=== PATIENT | male | born 1965 | race Caucasian/White ===

== ENCOUNTER 2019-01-12 19:06 | Inpatient (IN) | payer MEDICAID ==
[~2019-01-12 19:06] MED LIST: BACTRIM DS TABL1 TAB PO; FOLIC ACID1 MG PO; HYDROCHLOROTHIA25 MG PO; LASIX40 MG PO; METHOTREXATE2.5 MG PO; METOPROLOL TAR100 M1 PO; PERCOCET 10/3251 TA1 PO; PREDNISONE5 MG PO; VITAMIN A10000 UNIT PO
[2019-01-12 20:01] LABS: BASOPHILS 0.3 % (0-2); EOSINOPHILS 0.6 % (0-7); HEMATOCRIT 31.9 % (42.0-54.0); LYMPHOCYTES 13.3 % (15-50); MCH 30.7 pg (26.0-34.0); MCHC 34.5 g/dL (31.0-37.0); MCV 89.1 fL (80.0-100.0); MEAN PLATELET VOLUME 10.3 fL (7.4-10.4); MONOCYTES 5.4 % (2-11); NEUTROPHILS 79.4 % (40-80); PLATELET COUNT 188 10x3/uL (130-400); RBC 3.58 10x6/uL (4.20-6.10); RDW 14.8 % (11.5-14.5); WBC 12.7 10x3/uL (4.8-10.8)
[2019-01-12 20:23] LABS: ALBUMIN 2.8 g/dL (3.4-5.0); ANION GAP 13.1 mmol/L (8-16); BILIRUBIN - TOTAL 0.54 mg/dL (0.2-1.3); CALCIUM 8.4 mg/dL (8.5-10.1); CARBON DIOXIDE 24.7 mmol/L (21.0-32.0); CREATININE - SERUM 1.4 mg/dL (0.6-1.3); PROTEIN - SERUM 7.4 g/dL (6.4-8.2)
[2019-01-12 20:24] LABS: POTASSIUM - SERUM 2.8 mmol/L (3.5-5.1)
[2019-01-12 22:02] VITALS: BP 168/78
[2019-01-12 22:36] VITALS: BP 159/82
--- NOTE | 2019-01-12 23:30 | NUR ---
RECEIVED PT TO FLOOR FROM ER VIA WHEELCHAIR. IV BOLUS INFUSING. IV ANTIBIOTIC INFUSION COMPLETE UPON ARRIVAL. REVIEWED HOME MEDS AND HISTORY. LEFT LOWER EXTREMITY +3 PITTING EDEMA. WOUND ON LEFT CALF SCABBED OVER WITH NO APPARENT DRAINAGE. REDNESS FROM LOWER LEG TO THIGH. PLACED SCD ON RIGHT LEG AND GAVE TEACHING ON. TELEMETRY ON. ASSESSMENT COMPLETE PER FLOW-SHEET.
[2019-01-13] VITALS (7 sets, daily range): BP systolic 101–137; BP diastolic 44–82; BMI 37.4
[2019-01-13] MEDS ORDERED: CHLORTHALIDONE25 MG PO (00:07)
[2019-01-13] MEDS ORDERED: LISINOPRIL40 MG PO (00:07)
[2019-01-13] MEDS ORDERED: VOLTAREN75 MG PO (00:09)
[2019-01-13] MEDS ORDERED: AZULFIDINE500 MG PO (00:10)
[2019-01-13] MEDS ORDERED: HYDROXYCHLOR TAB 200 PO (00:12)
[2019-01-13] MEDS ORDERED: CARDURA8 MG PO (00:17)
[2019-01-13] MEDS ORDERED: ACETAMINOPHEN500 M1 PO (00:20)
[2019-01-13 05:08] LABS: BASOPHILS 0.2 % (0-2); EOSINOPHILS 0.5 % (0-7); HEMATOCRIT 30.6 % (42.0-54.0); HEMOGLOBIN 10.4 g/dL (13.5-17.5); LYMPHOCYTES 11.6 % (15-50); MCH 30.1 pg (26.0-34.0); MCV 88.4 fL (80.0-100.0); MEAN PLATELET VOLUME 10.4 fL (7.4-10.4); MONOCYTES 11.9 % (2-11); NEUTROPHILS 74.8 % (40-80); PLATELET COUNT 185 10x3/uL (130-400); RBC 3.46 10x6/uL (4.20-6.10); RDW 14.7 % (11.5-14.5); WBC 13.1 10x3/uL (4.8-10.8)
[2019-01-13 05:16] LABS: ANION GAP 11.5 mmol/L (8-16); CALCIUM 8.3 mg/dL (8.5-10.1); CARBON DIOXIDE 27.4 mmol/L (21.0-32.0); CREATININE - SERUM 1.2 mg/dL (0.6-1.3); MAGNESIUM - SERUM 1.7 mg/dL (1.8-2.4)
[2019-01-13 05:21] LABS: POTASSIUM - SERUM 2.9 mmol/L (3.5-5.1)
--- NOTE | 2019-01-13 08:00 | NUR ---
ASSESSMENT PER FLOW SHEET.PT IS WITHOUT DISTRESS.CALL LIGHT IN REACH
[2019-01-14] VITALS: BP 111/68
[2019-01-14 04:00] VITALS: BP 142/78
--- NOTE | 2019-01-14 05:00 | NUR ---
PT C/O LEG PAIN 10/10. GAVE MORPHINE 4 MG IV PUSH. NO OTHER NEEDS. WILL REASSESS AND CONTINUE TO MONITOR.
[2019-01-14 06:38] LABS: BASOPHILS 0.2 % (0-2); EOSINOPHILS 0.6 % (0-7); HEMATOCRIT 29.4 % (42.0-54.0); HEMOGLOBIN 9.9 g/dL (13.5-17.5); IMMATURE GRANULOCYTES 1.2 % (0-5); LYMPHOCYTES 11.7 % (15-50); MCH 29.9 pg (26.0-34.0); MCHC 33.7 g/dL (31.0-37.0); MCV 88.8 fL (80.0-100.0); MEAN PLATELET VOLUME 10.3 fL (7.4-10.4); MONOCYTES 10.9 % (2-11); NEUTROPHILS 75.4 % (40-80); PLATELET COUNT 187 10x3/uL (130-400); RBC 3.31 10x6/uL (4.20-6.10); RDW 14.8 % (11.5-14.5); WBC 10.8 10x3/uL (4.8-10.8)
[2019-01-14 06:49] LABS: ALBUMIN 2.3 g/dL (3.4-5.0); ALKALINE PHOSPHATASE 62 U/L (46-116); ALT (SGPT) 31 U/L (10-68); BILIRUBIN - TOTAL 0.47 mg/dL (0.2-1.3); CALCIUM 8.5 mg/dL (8.5-10.1); CARBON DIOXIDE 23.3 mmol/L (21.0-32.0); CHLORIDE - SERUM 106 mmol/L (98-107); CREATININE - SERUM 0.9 mg/dL (0.6-1.3); GLUCOSE 113 mg/dL (74-106); MAGNESIUM - SERUM 1.7 mg/dL (1.8-2.4); SODIUM 139 mmol/L (136-145); eGFR NON AFRICAN AMERICAN > 90 mL/min (90-120)
[2019-01-14 06:51] LABS: CALC OSMOLALITY 276 mosm/kg (275-300); POTASSIUM - SERUM 4.1 mmol/L (3.5-5.1); UREA NITROGEN 8 mg/dL (7-18)
[2019-01-14 09:43] VITALS: BP 134/62
[2019-01-14 14:17] VITALS: BP 146/75
[2019-01-14 17:44] VITALS: BP 134/78
--- NOTE | 2019-01-14 18:50 | NUR ---
PATIENT IN BED WITH IV INTACT. NOC OMPLAINTS OR SIGNS OF DISTRESS. RECIEVED PAIN MED AT THIS TIME. FAMILY AT BEDSIDE. CALL LIGHT WITHIN REACH.
[2019-01-14 20:00] VITALS: BP 132/85
[2019-01-15] VITALS: BP 127/76
--- NOTE | 2019-01-15 00:15 | NUR ---
PT C/O ITCHING. RED SPLOTCHY RASH ON BILAT THIGHS, ABDOMEN UP TO CHEST AND AROUND TO BACK. CALLED PHYSICIAN. ORDER FOR BENADRYL AND SOLUMEDROL. BENADRYL GIVEN, WAITING FOR CYLINDER MACHINE OPERATOR PULP DRIER TO PULL SOLUMEDROL. PT TOOK SHOWER AND BED WAS CHANGED. APPLIED NEW DRESSING WITH BETADINE WET TO DRY PER DRESSING CHANGE INSTRUCTIONS. NO OTHER NEEDS. WILL CONTINUE TO MONITOR.
[2019-01-15 04:00] VITALS: BP 120/71
[2019-01-15 06:39] LABS: BASOPHILS 0.2 % (0-2); EOSINOPHILS 0.8 % (0-7); HEMATOCRIT 30.8 % (42.0-54.0); HEMOGLOBIN 10.5 g/dL (13.5-17.5); IMMATURE GRANULOCYTES 1.3 % (0-5); LYMPHOCYTES 7.6 % (15-50); MCH 30.3 pg (26.0-34.0); MCHC 34.1 g/dL (31.0-37.0); MEAN PLATELET VOLUME 10.3 fL (7.4-10.4); NEUTROPHILS 84.1 % (40-80); PLATELET COUNT 224 10x3/uL (130-400); RBC 3.46 10x6/uL (4.20-6.10); RDW 14.8 % (11.5-14.5); WBC 10.6 10x3/uL (4.8-10.8)
[2019-01-15 07:25] LABS: ALBUMIN 2.4 g/dL (3.4-5.0); ALKALINE PHOSPHATASE 66 U/L (46-116); ALT (SGPT) 36 U/L (10-68); BILIRUBIN - TOTAL 0.29 mg/dL (0.2-1.3); CALC OSMOLALITY 273 mosm/kg (275-300); CALCIUM 8.7 mg/dL (8.5-10.1); CARBON DIOXIDE 22.9 mmol/L (21.0-32.0); CHLORIDE - SERUM 104 mmol/L (98-107); GLUCOSE 142 mg/dL (74-106); MAGNESIUM - SERUM 1.7 mg/dL (1.8-2.4); POTASSIUM - SERUM 4.4 mmol/L (3.5-5.1); PROTEIN - SERUM 7.5 g/dL (6.4-8.2); SODIUM 137 mmol/L (136-145); UREA NITROGEN 8 mg/dL (7-18); eGFR NON AFRICAN AMERICAN 84 mL/min (90-120)
--- NOTE | 2019-01-15 08:00 | NUR ---
PT RESTING EYES CLOSED NO SIGNS OF DISTRESS NOTED, CL IN REACH WILL CONTINUE TO MONITOR
[2019-01-15 10:13] VITALS: BP 140/84
[2019-01-15 13:54] VITALS: BP 146/77
[2019-01-15 17:49] VITALS: BP 125/83
--- NOTE | 2019-01-15 18:02 | NUR ---
I have reviewed this patient and I concur with the Shift Assessment completed by the Licensed Practical Nurse today this shift.
--- NOTE | 2019-01-15 20:00 | NUR ---
LYING IN BED. C/O PAIN IN LLE AND ITCHING. LLE IS RED WITH DRSG NOTED THAT IS C/D/I. RED RAISED RASH NOTED TO CHEST, ABD AND BILAT THIGHS. RATES PAIN IN LLE 10. RESP EVEN AND NONLABORED. BBS CTA. NS WITH 40 MEQ KCL @ 125 ML/HR INFUSING IN LT AC WITHOUT DIFF. SALINE LOCK NOTED TO RT AC. REFUSES TO WEAR SCD. ABD IS FIRM AND DISTENDED WITH BS ACTIVE X4 QUADS. AMBULATORY. S.O. AT BEDSIDE. ALERT AND ORIENTED X4. CL IN REACH.
--- NOTE | 2019-01-15 20:35 | NUR ---
MEDICATED WITH NORCO AND BENADRYL ORDERED FOR C/O PAIN IN LLE AND ITCHING FROM RASH. CL IN REACH.
[2019-01-15 21:25] VITALS: BP 157/77
[2019-01-16 01:19] VITALS: BP 155/90
--- NOTE | 2019-01-16 02:04 | NUR ---
HAS RESTED WELL SO FAR THIS SHIFT. NO DISTRESS. LYING IN BED WITH EYES CLOSED. RESP EVEN AND NONLABORED. SR ELEVATED X2. CL IN REACH.
[2019-01-16 06:52] LABS: BASOPHILS 0.1 % (0-2); EOSINOPHILS 0 % (0-7); HEMATOCRIT 28.8 % (42.0-54.0); HEMOGLOBIN 9.8 g/dL (13.5-17.5); IMMATURE GRANULOCYTES 1.6 % (0-5); LYMPHOCYTES 6.8 % (15-50); MCH 30.5 pg (26.0-34.0); MCV 89.7 fL (80.0-100.0); MEAN PLATELET VOLUME 10.3 fL (7.4-10.4); MONOCYTES 7.5 % (2-11); PLATELET COUNT 265 10x3/uL (130-400); RBC 3.21 10x6/uL (4.20-6.10); RDW 14.6 % (11.5-14.5)
[2019-01-16 07:29] LABS: WBC 17.1 10x3/uL (4.8-10.8)
[2019-01-16 07:31] LABS: ALBUMIN 2.2 g/dL (3.4-5.0); ALKALINE PHOSPHATASE 67 U/L (46-116); ALT (SGPT) 30 U/L (10-68); BILIRUBIN - TOTAL 0.12 mg/dL (0.2-1.3); CALC OSMOLALITY 284 mosm/kg (275-300); CALCIUM 8.4 mg/dL (8.5-10.1); CARBON DIOXIDE 23.6 mmol/L (21.0-32.0); CHLORIDE - SERUM 107 mmol/L (98-107); CREATININE - SERUM 0.9 mg/dL (0.6-1.3); POTASSIUM - SERUM 3.9 mmol/L (3.5-5.1); PROTEIN - SERUM 7.1 g/dL (6.4-8.2); SODIUM 140 mmol/L (136-145); UREA NITROGEN 10 mg/dL (7-18); eGFR NON AFRICAN AMERICAN > 90 mL/min (90-120)
[2019-01-16 07:32] LABS: GLUCOSE 232 mg/dL (74-106)
[2019-01-16 08:55] VITALS: BP 121/66
--- NOTE | 2019-01-16 09:30 | NUR ---
PT ON CL, IV IN LEFT AC IS LEAKING, TUIRNED OFF IV AND ADVISED PT THAT I WILL NEED TO RESITE IV. O OTHER NEEDS AT THIS TIME CONTINUE WITH PLAN O FCARE
--- NOTE | 2019-01-16 11:50 | NUR ---
Dr. Bonilla is treating. Dressing change orders are documented.
[2019-01-16 12:34] VITALS: BP 155/97
--- NOTE | 2019-01-16 17:07 | NUR ---
I AGREE WITH THE PETROLEUM TERMINAL PLANT OPERATOR ASSESSMENT.
[2019-01-16 17:27] VITALS: BP 127/82
[2019-01-16 20:00] VITALS: BP 130/76
--- NOTE | 2019-01-16 23:00 | NUR ---
RECEIVED CARE FROM PREVIOUS NURSE. NO DISTRESS NOTED. CALL LIGHT AT SIDE.
--- NOTE | 2019-01-17 02:58 | NUR ---
I have reviewed this patient and I concur with the Shift Assessment completed by the Licensed Practical Nurse today this shift.
[2019-01-17 05:43] LABS: HEMATOCRIT 30.4 % (42.0-54.0); MCH 30.2 pg (26.0-34.0); MCHC 32.9 g/dL (31.0-37.0); MEAN PLATELET VOLUME 9.8 fL (7.4-10.4); PLATELET COUNT 262 10x3/uL (130-400); RBC 3.31 10x6/uL (4.20-6.10)
[2019-01-17 05:59] LABS: ALBUMIN 2.1 g/dL (3.4-5.0); ALKALINE PHOSPHATASE 59 U/L (46-116); ALT (SGPT) 29 U/L (10-68); BILIRUBIN - TOTAL 0.11 mg/dL (0.2-1.3); CALC OSMOLALITY 280 mosm/kg (275-300); CALCIUM 8.2 mg/dL (8.5-10.1); CARBON DIOXIDE 24.4 mmol/L (21.0-32.0); CHLORIDE - SERUM 109 mmol/L (98-107); CREATININE - SERUM 0.8 mg/dL (0.6-1.3); MAGNESIUM - SERUM 1.8 mg/dL (1.8-2.4); PROTEIN - SERUM 6.4 g/dL (6.4-8.2); SODIUM 142 mmol/L (136-145); UREA NITROGEN 8 mg/dL (7-18); eGFR NON AFRICAN AMERICAN > 90 mL/min (90-120)
[2019-01-17 06:01] LABS: GLUCOSE 106 mg/dL (74-106); MCV 91.8 fL (80.0-100.0); WBC 12.5 10x3/uL (4.8-10.8)
[2019-01-17 06:26] VITALS: BP 115/71
[2019-01-17 07:37] LABS: LYMPHOCYTES 18 % (15-50); MONOCYTES 17 % (2-11); NEUTROPHILS 58 % (40-80); PLATELET ESTIMATE NORMAL
[2019-01-17 07:41] LABS: ANISOCYTOSIS OCC; POLYCHROMASIA OCC
[2019-01-17 09:30] VITALS: BP 139/85
[2019-01-17 12:08] VITALS: BMI 37.3
[2019-01-17 12:49] VITALS: BP 134/93
--- NOTE | 2019-01-17 14:37 | NUR ---
4506 RESTING QUIETLY AWAKENS WITH VOICE DENIES PAIN AT THIS TIME NO DISTRESS NOTED ASSESSMENT COMPLETE
[2019-01-17 17:44] VITALS: BP 204/91
--- NOTE | 2019-01-17 20:00 | NUR ---
ASSESSMENT PER FLOWSHEET. DRSG TO LEFT LOWER LEG C/D/I. +4 PITTING EDEMA NOTED. IV PATENT RT FOREARM OF NS W/40MEQ KCL AT 125CC'S/HR. SITE CLEAR. PT IN CONTACT ISOLATION. REFUSES SCD'S.
[2019-01-17 20:40] VITALS: BP 154/87
--- NOTE | 2019-01-17 21:00 | NUR ---
MEDS GIVEN PER SEP. EQCF=613. 4 UNITS REGULAR INSULIN GIVEN SUBC PER S/S RT ARM.IV PATENT RT ARM OF NS W/40MEQ KCL INFUSING AT 125CC'S/HR.
--- NOTE | 2019-01-18 00:38 | NUR ---
C/O PAIN TO LEFT LOWER LEG. RATES PAIN LEVEL #7-8 NORCO 10 TAB ONE PO GIVEN FOR PAIN CONTROL.
[2019-01-18 00:51] VITALS: BP 155/97
--- NOTE | 2019-01-18 02:00 | NUR ---
EYES CLOSED RESPIRATIONS WITH EASE AND UNLABORED.
--- NOTE | 2019-01-18 04:20 | NUR ---
RESTING QUIETLY SR UP X2 CALL LIGHT WITHIN REACH DENIES NEEDS.
[2019-01-18 04:48] VITALS: BP 174/94
[2019-01-18 06:24] LABS: BASOPHILS 0.3 % (0-2); EOSINOPHILS 0.2 % (0-7); HEMATOCRIT 29.7 % (42.0-54.0); IMMATURE GRANULOCYTES 8.8 % (0-5); LYMPHOCYTES 16.8 % (15-50); MCH 30.8 pg (26.0-34.0); MCHC 33.7 g/dL (31.0-37.0); MCV 91.4 fL (80.0-100.0); MEAN PLATELET VOLUME 9.9 fL (7.4-10.4); MONOCYTES 9.7 % (2-11); NEUTROPHILS 64.2 % (40-80); PLATELET COUNT 309 10x3/uL (130-400); RBC 3.25 10x6/uL (4.20-6.10); RDW 14.9 % (11.5-14.5); WBC 15.4 10x3/uL (4.8-10.8)
[2019-01-18 07:18] LABS: ALBUMIN 2.1 g/dL (3.4-5.0); ALKALINE PHOSPHATASE 58 U/L (46-116); ALT (SGPT) 35 U/L (10-68); BILIRUBIN - TOTAL 0.14 mg/dL (0.2-1.3); CALC OSMOLALITY 279 mosm/kg (275-300); CALCIUM 8.2 mg/dL (8.5-10.1); CARBON DIOXIDE 23.9 mmol/L (21.0-32.0); CHLORIDE - SERUM 107 mmol/L (98-107); CREATININE - SERUM 0.9 mg/dL (0.6-1.3); GLUCOSE 105 mg/dL (74-106); POTASSIUM - SERUM 4.5 mmol/L (3.5-5.1); PROTEIN - SERUM 6.5 g/dL (6.4-8.2); SODIUM 140 mmol/L (136-145); eGFR NON AFRICAN AMERICAN > 90 mL/min (90-120)
[2019-01-18 07:26] LABS: UREA NITROGEN 14 mg/dL (7-18)
--- NOTE | 2019-01-18 08:00 | NUR ---
ASSESSMENT PER FLOW SHEET. PT IS WITHOUT DISTRESS.ISOLATION MAINTAINED.CALL LIGHT IN REACH
[2019-01-18 08:50] VITALS: BP 143/94
[2019-01-18 12:24] VITALS: BP 140/86
--- NOTE | 2019-01-18 12:30 | NUR ---
PT REMAINS WITHOUT DISTRESS.DENIES NEEDS
--- NOTE | 2019-01-18 14:44 | NUR ---
NAPPING,WITHOUT DISTRESS.
[2019-01-18] MEDS ORDERED: PREDNISONE10 MG PO (15:27)
[2019-01-18] MEDS ORDERED: LEVAQUIN750 MG PO (15:28)
[2019-01-18] MEDS ORDERED: CLEOCIN HCL300 MG PO (15:29)
[2019-01-18 18:08] LABS: AEROBE ID Final report (())
--- NOTE | 2019-01-18 18:08 | NUR ---
iv dcd with cath tip intact.discharge instructions,states understanding
[2019-01-18 18:20] VITALS: BP 137/87
--- NOTE | 2019-01-18 18:25 | NUR ---
left [facility] via wheelchair for transport home
== END 2019-01-18 18:25 | disposition home or self-care (01) | DRG 603 ==
LOC: D.ER 19:06 → D.MS 21:22
PROVIDERS: Family Medicine; Podiatrist Foot & Ankle Surgery; ADMIT Family Medicine; ATTEND Family Medicine
DX: L03.116 Cellulitis of left lower limb (principal); E87.6 Hypokalemia; I10 Essential (primary) hypertension; M06.9 Rheumatoid arthritis, unspecified; L27.0 Generalized skin eruption due to drugs and medicaments taken internally

== ENCOUNTER → 2019-01-30 18:56 | Outpatient (CLI) | payer MEDICAID ==
[2019-01-17 12:08] VITALS: BMI 37.3
[~2019-01-30 18:56] MED LIST changes: +ACETAMINOPHEN500 M1 PO; +AZULFIDINE500 MG PO; +CARDURA8 MG PO; +CHLORTHALIDONE25 MG PO; +CLEOCIN HCL300 MG PO; +HYDROXYCHLOR TAB 200 PO; +LEVAQUIN750 MG PO; +LISINOPRIL40 MG PO; +PREDNISONE10 MG PO; +VOLTAREN75 MG PO
== END | disposition home or self-care (01) ==
LOC: D.LABREF 18:56
PROVIDERS: ATTEND Podiatrist Foot & Ankle Surgery
DX: L02.416 Cutaneous abscess of left lower limb (principal)

== ENCOUNTER 2019-05-09 04:37 | Inpatient (IN) | payer MEDICAID ==
[~2019-05-09] VITALS: Ht 175.3 cm; Wt 97.6 kg
[2019-05-09] MEDS ORDERED: LISINOPRIL10 MG PO (04:42)
[2019-05-09] MEDS ORDERED: HYDROCHLOROTHIA25 MG PO (04:42)
[2019-05-09 05:15] LABS: BASOPHILS 0.1 % (0-2); EOSINOPHILS 0.2 % (0-7); HEMATOCRIT 35.6 % (42.0-54.0); HEMOGLOBIN 11.7 g/dL (13.5-17.5); IMMATURE GRANULOCYTES 0.3 % (0-5); LYMPHOCYTES 10.1 % (15-50); MCH 30.8 pg (26.0-34.0); MCHC 32.9 g/dL (31.0-37.0); MCV 93.7 fL (80.0-100.0); MEAN PLATELET VOLUME 10.5 fL (7.4-10.4); NEUTROPHILS 86.3 % (40-80); WBC 11.1 10x3/uL (4.8-10.8)
[2019-05-09 05:25] LABS: PLATELET COUNT 217 10x3/uL (130-400)
[2019-05-09 05:26] LABS: ALBUMIN 2.6 g/dL (3.4-5.0); ALKALINE PHOSPHATASE 64 U/L (46-116); ALT (SGPT) 22 U/L (10-68); BILIRUBIN - TOTAL 0.49 mg/dL (0.2-1.3); CALC OSMOLALITY 269 mosm/kg (275-300); CALCIUM 7.9 mg/dL (8.5-10.1); CARBON DIOXIDE 23.5 mmol/L (21.0-32.0); CHLORIDE - SERUM 100 mmol/L (98-107); CREATINE KINASE 28 UL (21-232); GLUCOSE 140 mg/dL (74-106); POTASSIUM - SERUM 3.3 mmol/L (3.5-5.1); SODIUM 134 mmol/L (136-145); UREA NITROGEN 13 mg/dL (7-18); eGFR NON AFRICAN AMERICAN 84 mL/min (90-120)
[2019-05-09 05:39] LABS: APTT 30.7 SECONDS (22.8-39.4); INR 1.23 (0.85-1.17)
[2019-05-09 05:47] LABS: D-DIMER-QUANTITATIVE 1.7 ug/mLFEU (0.20-0.54)
[2019-05-09 06:18] LABS: APPEARANCE CLEAR (CLEAR); BILIRUBIN NEGATIVE (NEGATIVE); COLOR YELLOW (YELLOW); GLUCOSE NEGATIVE (NEGATIVE); KETONE NEGATIVE (NEGATIVE); NITRITE NEGATIVE (NEGATIVE); PROTEIN NEGATIVE (NEGATIVE); SPECIFIC GRAVITY 1.005 (1.005-1.020); UROBILINOGEN NORMAL (NORMAL)
[2019-05-09 06:23] LABS: UDS - AMPHET POSITIVE QUAL (NEGATIVE); UDS - BARB NEGATIVE QUAL (NEGATIVE); UDS - BENZO NEGATIVE QUAL (NEGATIVE); UDS - COCAINE NEGATIVE QUAL (NEGATIVE); UDS - OPIATE POSITIVE QUAL (NEGATIVE); UDS - PCP NEGATIVE QUAL (NEGATIVE); UDS - THC NEGATIVE QUAL (NEGATIVE)
--- NOTE | 2019-05-09 06:26 | NUR ---
RESTING IN ROOM QUIETLY AT THIS TIME. LIFE INSURANCE AGENT LEFT ER. REPORTS PAIN HAS IMPROVED
--- NOTE | 2019-05-09 07:09 | NUR ---
TEST INSPECTION ENGINEER IN ROOM COMPLETING ULTRASOUND ON LEFT LEFG
--- NOTE | 2019-05-09 07:18 | NUR ---
SUPERVISOR PAINT DEPARTMENT STATED ULTRASOUND OF LEFT LEG WAS NEGATIVE
--- NOTE | 2019-05-09 07:19 | NUR ---
WAITING ON PHARMACY TO SEND VANC TO HAND
--- NOTE | 2019-05-09 07:35 | NUR ---
REPORT GIVEN TO BLANK ON MED II
--- NOTE | 2019-05-09 07:55 | NUR ---
RECEIVED PT FROM ER VIA WHEELCHAIR. PT IS AAO AND UP AD GREG. R.FOR PIV IS SALINE LOCKED. RR EVEN AND UNLABORED ON RA. VSS AND WNL. QUICKSTART, MED REQ, HISTORY COMPLETE. NO S/S OF DISTRESS NOTED. LEFT FOOT IS RED, SWOLLEN, WARM. PT DENIES ANY NEEDS AT THIS TIME. WILL CTM.
[2019-05-09 08:45] VITALS: BP 140/99
[2019-05-09 09:25] VITALS: BP 140/85; Ht 175.3 cm; Wt 97.6 kg
[2019-05-09 12:45] VITALS: BP 162/101
--- NOTE | 2019-05-09 15:56 | NUR ---
REFUSES SCD, UP AD GREG
[2019-05-09 16:46] VITALS: BP 162/90
--- NOTE | 2019-05-09 17:15 | NUR ---
PT LYING SEMI FOWLERS. CALL LIGHT W/I REACH. PT CURRENTLY EATING DINER AND DENIES ANY NEEDS AT THIS TIME. WILL CTM.
--- NOTE | 2019-05-09 19:15 | NUR ---
EVENING ROUNDS COMPLETE. PT LAYING IN BED, NO SIGNS OF DISTRESS. FAMILY AT BEDSIDE. PT C/O PAIN 8/10 IN L LEG. EXPLAINED TO PT PAIN MED GIVEN 30 MINUTES PRIOR AND THAT IT WILL TAKE TIME TO BECOME EFFECTIVE. PT VERBALIZED UNDERSTANDING. PT DENIES ANY OTHER NEEDS AT THIS TIME. CL IN REACH, BED IN LOWEST POSTION.
[2019-05-09 20:00] VITALS: BP 152/89
[2019-05-10] VITALS: BP 134/74
--- NOTE | 2019-05-10 02:00 | NUR ---
PT ASKED FOR PAIN MED. WHEN OFFERED PRN NORCO PT REFUSED TO TAKE MED STATING "WHY WOULD I TAKE SOMETHING THAT DOESNT HELP ME, GET ME SOMETHING STRONGER" PT STATED HIS PAIN IS 10/10. PAGED JC LORD AT THIS TIME.
--- NOTE | 2019-05-10 02:05 | NUR ---
POP GREENE STATED THAT DUE TO MORPHINE BEING D/C'D TO CONTINUE WITH NORCO PRN PAIN MED.
--- NOTE | 2019-05-10 02:10 | NUR ---
PT MADE AWARE THAT HE WILL HAVE TO TALK WITH IN A.M. ABOUT STARTING ANY PAIN MEDICATION THAT IS NOT ALREADY ON HIS EMAR. PT STATED "THEN IM LEAVING AND GOING SOMEWHERE THAT WILL ACTUALLY TREAT ME." EXPLAINED TO PT THAT IT IS HIS RIGHT TO LEAVE, BUT THAT IT WOULD BE AMA AND INSURANCE MAY OR MAY NOT COVER THIS HOSPITAL STAY. PT ATTEMPTED TO CONTACT S/O WITH NO ANSWER. PT STATES HE WILL LEAVE WHEN HE HAS A RIDE. PT IS NOT SIGNING AMA PAPERWORK AT THIS TIME. MIRI SAUCEDAORKRISTINOR NOTIFIED. POP GREENE NOTIFIED.
[2019-05-10 04:00] VITALS: BP 157/87
[2019-05-10 04:37] LABS: BASOPHILS 0.1 % (0-2); EOSINOPHILS 0.3 % (0-7); HEMATOCRIT 32.6 % (42.0-54.0); HEMOGLOBIN 10.7 g/dL (13.5-17.5); IMMATURE GRANULOCYTES 0.3 % (0-5); MCH 30.7 pg (26.0-34.0); MCHC 32.8 g/dL (31.0-37.0); MCV 93.7 fL (80.0-100.0); MEAN PLATELET VOLUME 10.8 fL (7.4-10.4); MONOCYTES 6.2 % (2-11); NEUTROPHILS 77.1 % (40-80); PLATELET COUNT 230 10x3/uL (130-400); RBC 3.48 10x6/uL (4.20-6.10); RDW 15.2 % (11.5-14.5); WBC 11.5 10x3/uL (4.8-10.8)
[2019-05-10 05:08] LABS: CALC OSMOLALITY 276 mosm/kg (275-300); CARBON DIOXIDE 24.8 mmol/L (21.0-32.0); CHLORIDE - SERUM 104 mmol/L (98-107); GLUCOSE 132 mg/dL (74-106); POTASSIUM - SERUM 3.1 mmol/L (3.5-5.1); SODIUM 138 mmol/L (136-145); UREA NITROGEN 10 mg/dL (7-18)
[2019-05-10 05:23] LABS: CREATININE - SERUM 0.7 mg/dL (0.6-1.3); eGFR NON AFRICAN AMERICAN > 90 mL/min (90-120)
--- NOTE | 2019-05-10 05:24 | NUR ---
PT LAYING IN BED. ASKED IF HE WOULD LIKE HIS WENDEL WITH A.M. MEDS. PT STATED "NO".
--- NOTE | 2019-05-10 06:55 | NUR ---
REPORT RECEIVED. HE IS AWAKE IN THE BED STATES HIS LEG IS HURTING. HE REFUSES HYDROCODONE. CL IN REACH BED IN LOWEST POSITION AND LOCKED. CAREPLAN REVIEW DONE WITH SAFETY PRECAUTIONS IN PLACE. LEFT LEG WITH EDEMA NOTED 4 +, NO OPEN AREAS JUST OLD SCARS AND CALLUS NOTED. NO DRAINAGE.
--- NOTE | 2019-05-10 07:30 | NUR ---
C/O PAIN IN LEFT LEG. HE REFUSES TO TAKE HYDROCODONE STATES IT JUST DON'T WORK. HE HAS IT ELEVATED UP ON PILLOW AT THIS TIME. STATES HE WILL TALK TO THE DOCTOR WHEN HE MAKES ROUNDS CONCERNING PAIN CONTROL.
[2019-05-10 08:00] VITALS: BP 192/117
[2019-05-10 08:47] LABS: % SATURATION 10 % (15-55); IRON 20 ug/dl (35-150); TOTAL IRON BIND CAPACITY 187 ug/dl (260-445); UNSAT IRON BIND CAPACITY 167 ug/dl (150-375)
--- NOTE | 2019-05-10 10:12 | NUR ---
SALINE LOCK WITH REDNESS NOTED. HE REFUSES TO LET ME D/C IT OR RESTART ONE UNLESS HE CAN HAVE SOMETHING FOR PAIN. HE REQUEST A MORPHINE DRIP. I TALKED TO CHRISTY VELASQUEZ WHO STATED SHE WILL COME AND TALK TO HIM. SHE IS AWARE HE HAS REFUSED HYDROCODONE. HE WAS ALSO OFFERED HIS TYLENOL WHICH HE REFUSED.
--- NOTE | 2019-05-10 10:20 | NUR ---
CHRISTY CAME BY AND SPOKE WITH HIM AND EXPLAINED HE NEEDED A NEW SALINE LOCK AND HE WAS NOT GETTING ANY IV PAIN MEDS DUE TO RESULTS OF UDS, AND TO TAKE PO PAIN MED.
--- NOTE | 2019-05-10 10:48 | NUR ---
ULTRAM GIVEN PER NEW ORDER AND HE DID AGREE TO TAKE IT.
--- NOTE | 2019-05-10 11:30 | NUR ---
HE WAS ASLEEP WHEN I ENTERED THE ROOM, BUT WOKE UP AND SAID HE WAS STILL HAVING SOME PAIN BUT NOT BAD.
[2019-05-10 12:00] VITALS: BP 180/113
--- NOTE | 2019-05-10 15:05 | MORECARE ---
CASE MANAGEMENT DISCHARGE SUMMARY PATIENT: ATIF SCALES UNIT: [id number] ADM DATE: 05/09/19 AGE: 53 : 69 SEX: M ROOM/BED: D.7138 AUTHOR: FER MIRANDA PHYSICIAN: REFERRING PHYSICIAN: PRAVEEN CARRASQUILLO MD DATE OF SERVICE: 05/10/19 Discharge Plan Patient Name: ATIF SCALES Facility: [facility]:[place] : 1965 Planned Disposition: Home Anticipated Discharge Date: Discharge Date: Expected LOS: Initial Reviewer: [email or web address] Initial Review Date: 05/10/2019 Generated: 05/10/19 4:04 pm Comments DCP- Discharge Planning Updated by [email or web address]: Daniela Peters on 05/10/19 2:[address] Patient Name: ATIF SCALES Admission Status: Elective Accout number: [id number] Admission Date: 05-09-2019 : 1965 Admission Diagnosis: Attending: RAIMUNOD Current LOS: 1 Anticipated DC Date: Planned Disposition: Home Primary Insurance: [place] [employer]IONS [place] Discharge Planning Comments: CM MET WITH PATIENT AFTER OBTAINING VERBAL CONSENT. STATES PLANS TO DISCHARGE TO HOME. DISCUSSED NEED FOR HH, REHAB OR EQUIPMENT, PATIENT STATES NO NEEDS. CM WILL FOLLOW AND ASSIST NEEDED. Cinder Crew Worker: Daniela Peters DCPIA - Discharge Planning Initial Assessment Updated by [email or web address]: Daniela Peters on 05/10/19 3:03 pm * Is the patient Alert and Oriented? Yes * PCP GINO * [facility] * Preadmission Environment Home with Family * ADLs Independent * Equipment None * List name and contact numbers for known caregivers / representatives who currently or will assist patient after discharge: NAE, * Community resources currently utilized None * Additional services required to return to the preadmission environment? No * Can the patient safely return to the preadmission environment? Yes * Has this patient been hospitalized within the prior 30 days at any hospital? No Patient Name: ATIF SCALES Page [phone] at 1505 All edits/amendments must be made on the electronic document DICTATION DATE: 05/10/191503 CRITICAL CARE SPECIALIST: TR 05/10/19 150 RPT#: [id number] DC DATE: STATUS: ADM IN [facility] [address] [place] [address] END OF REPORT
[2019-05-10 16:00] VITALS: BP 126/89
--- NOTE | 2019-05-10 17:59 | NUR ---
UNABLE TO RESITE IV AFTER 2 STICKS TODAY WILL LET ONCOMING KNOW THIS AND HE WILL ALSO NEED HIS VANCOMYCIN 1900 DOSE GIVEN.
[2019-05-10 20:35] VITALS: BP 148/86
[2019-05-11 00:45] VITALS: BP 161/95
[2019-05-11 04:30] VITALS: BP 172/91
--- NOTE | 2019-05-11 07:01 | NUR ---
REPORT RECEIVED. REMAINS IN CONTACT ISOLATION. HE IS ASLEEP RESP EVEN WITHOUT LABOR. LEFT LEG IS ELEVATED UP ON PILLOW. CAREPLAN REVIEW DONE WITH SAFETY PRECAUTIONS IN PLACE. BED IN LOWEST POSITION AND LOCKED. CL IN REACH
[2019-05-11 08:42] LABS: BASOPHILS 0.2 % (0-2); EOSINOPHILS 0.7 % (0-7); HEMATOCRIT 33.7 % (42.0-54.0); IMMATURE GRANULOCYTES 0.2 % (0-5); LYMPHOCYTES 16.9 % (15-50); MCH 30.6 pg (26.0-34.0); MCHC 32.6 g/dL (31.0-37.0); MCV 93.9 fL (80.0-100.0); MEAN PLATELET VOLUME 10.8 fL (7.4-10.4); MONOCYTES 9.2 % (2-11); NEUTROPHILS 72.8 % (40-80); PLATELET COUNT 232 10x3/uL (130-400); RBC 3.59 10x6/uL (4.20-6.10); RDW 15.4 % (11.5-14.5)
[2019-05-11 08:55] VITALS: BP 161/96
[2019-05-11 08:57] LABS: CALC OSMOLALITY 271 mosm/kg (275-300); CALCIUM 8.5 mg/dL (8.5-10.1); CARBON DIOXIDE 24.6 mmol/L (21.0-32.0); CHLORIDE - SERUM 101 mmol/L (98-107); CREATININE - SERUM 0.8 mg/dL (0.6-1.3); GLUCOSE 106 mg/dL (74-106); POTASSIUM - SERUM 3.5 mmol/L (3.5-5.1); PRO BNP 1833 pg/mL (0-125); SODIUM 137 mmol/L (136-145); UREA NITROGEN 8 mg/dL (7-18); eGFR NON AFRICAN AMERICAN > 90 mL/min (90-120)
[2019-05-11 12:10] VITALS: BP 160/104
--- NOTE | 2019-05-11 12:42 | NUR ---
C/O PAIN IN LEG. ULTRAM GIVEN PER ORDERS. ICE WATER PROVIDED. HE IS ENCOURAGED TO KEEP HIS LEG ELEVATED UP ON A PILLOW. CL IN REACH. NO CHANGE IN FOOT OR LEG. REMAINS WITH EDEMA AND REDNESS. NO OPEN AREA. TOP OF FOOT IS 4+ EDEMA.
[2019-05-11 15:41] VITALS: BP 133/102
--- NOTE | 2019-05-11 18:16 | NUR ---
AT BEDSIDE. HE IS AWAKE WITH NO CURRENT C/O.
[2019-05-11 20:00] VITALS: BP 149/96
[2019-05-12] VITALS (7 sets, daily range): BP systolic 138–172; BP diastolic 89–117
[2019-05-12 05:40] LABS: BASOPHILS 0.2 % (0-2); EOSINOPHILS 1.1 % (0-7); HEMATOCRIT 35.7 % (42.0-54.0); HEMOGLOBIN 11.8 g/dL (13.5-17.5); IMMATURE GRANULOCYTES 0.8 % (0-5); LYMPHOCYTES 21.1 % (15-50); MCH 30.6 pg (26.0-34.0); MCHC 33.1 g/dL (31.0-37.0); MCV 92.7 fL (80.0-100.0); MEAN PLATELET VOLUME 10.1 fL (7.4-10.4); MONOCYTES 11.2 % (2-11); NEUTROPHILS 65.6 % (40-80); PLATELET COUNT 243 10x3/uL (130-400); RBC 3.85 10x6/uL (4.20-6.10); RDW 15.5 % (11.5-14.5); WBC 10.6 10x3/uL (4.8-10.8)
[2019-05-12 06:07] LABS: CALC OSMOLALITY 280 mosm/kg (275-300); CALCIUM 8.6 mg/dL (8.5-10.1); CARBON DIOXIDE 29.4 mmol/L (21.0-32.0); CHLORIDE - SERUM 102 mmol/L (98-107); CREATININE - SERUM 0.8 mg/dL (0.6-1.3); GLUCOSE 109 mg/dL (74-106); POTASSIUM - SERUM 3.2 mmol/L (3.5-5.1); SODIUM 141 mmol/L (136-145); eGFR NON AFRICAN AMERICAN > 90 mL/min (90-120)
[2019-05-12 06:15] LABS: UREA NITROGEN 11 mg/dL (7-18)
--- NOTE | 2019-05-12 07:00 | NUR ---
REPORT RECEIVED. HE REMAINS IN CONTACT ISOLATION. HE IS AWAKE WATCHING TV. STATES HIS FOOT IS HURTING MORE TODAY. IT REMAINS SWOLLEN AT FOOT AND UP HIS LEFT LEG UP TO RIGHT BELOW HIS KNEE. SOME REDNESS AND HEAT TO OUTSIDE OF HIS LEG. IT IS SLIGHTLY WORSE THAN YESTERDAY. ABLE TO GET PULSE BY DOPPLER. BED IN LOWEST POSTION AND LOCKED. CAREPLAN REVIEW DONE WITH SAFETY PRECAUTIONS IN PLACE
--- NOTE | 2019-05-12 08:00 | NUR ---
B/P REPORTED WAS 172/117. HIS AM MEDS WERE GIVEN WITH LASIX IVP.
--- NOTE | 2019-05-12 11:03 | NUR ---
NOTIFIED LAB HE HAS RETURNED AT THIS TIME FROM MRI
--- NOTE | 2019-05-12 14:37 | NUR ---
DR BREEN CALLED STATED HE COULD EAT NOW. APPLY DAREK WRAP STARTING AT HIS FOOT UP TO KNEE FOR HIS CELLULITIS
--- NOTE | 2019-05-12 19:40 | NUR ---
PT CARE ASSUMED. RR EVEN AND UNLABORED ON RA. NO S/S OF DISTRESS AT THIS TIME. NO C/O OR CONCERNS NOTED. CALL LIGHT IN REACH. WILL CPOC.
--- NOTE | 2019-05-13 03:13 | NUR ---
NO C/O OR CONCERNS NOTED. PT RESTING QUIETLY WITH EYES CLOSED. CALL LIGHT IN REACH. WILL CTM.
[2019-05-13 04:45] VITALS: BP 171/107
[2019-05-13 05:39] LABS: BASOPHILS 0.3 % (0-2); EOSINOPHILS 1.6 % (0-7); HEMATOCRIT 36.8 % (42.0-54.0); HEMOGLOBIN 12.1 g/dL (13.5-17.5); IMMATURE GRANULOCYTES 1.6 % (0-5); LYMPHOCYTES 23.7 % (15-50); MCH 30.9 pg (26.0-34.0); MCHC 32.9 g/dL (31.0-37.0); MCV 94.1 fL (80.0-100.0); MEAN PLATELET VOLUME 10.2 fL (7.4-10.4); MONOCYTES 11.3 % (2-11); NEUTROPHILS 61.5 % (40-80); PLATELET COUNT 291 10x3/uL (130-400); RBC 3.91 10x6/uL (4.20-6.10); RDW 15.7 % (11.5-14.5); WBC 11.5 10x3/uL (4.8-10.8)
[2019-05-13 05:57] LABS: CALC OSMOLALITY 279 mosm/kg (275-300); CALCIUM 8.7 mg/dL (8.5-10.1); CARBON DIOXIDE 30.1 mmol/L (21.0-32.0); CHLORIDE - SERUM 104 mmol/L (98-107); CREATININE - SERUM 0.9 mg/dL (0.6-1.3); GLUCOSE 125 mg/dL (74-106); POTASSIUM - SERUM 3.7 mmol/L (3.5-5.1); SODIUM 140 mmol/L (136-145); UREA NITROGEN 13 mg/dL (7-18); eGFR NON AFRICAN AMERICAN > 90 mL/min (90-120)
[2019-05-13 08:00] VITALS: BP 167/105
--- NOTE | 2019-05-13 08:15 | NUR ---
REPORT RECIEVED. PT SITTING UP IN BED. PT STATES HE TOOK THE DAREK BANDAGE OF LEG BC IT WAS BOTHERING HIM. RR EVEN AND UNLABORED. NO DISTRESS NOTED. PT HAS A L WRIST PIV INFUSING NS @ KVO. BED LOCKED AND IN LOWEST POSITION, CALL LIGHT WITHIN REACH. WILL CTM
--- NOTE | 2019-05-13 11:05 | NUR ---
PIV TO L WRIST INFILTRATED, CAUSING PAIN AND SWELLING TO PT WRIST/FA. PIV REMOVED, CATH TIP FULLY INTACT. AFTER X3 ATTEMPTS, LUIS EDUARDO-OUTSIDE INDUSTRIAL SALES REPRESENTATIVE WAS ABLE TO OBTAIN A NEW PIV TO THE RIGHT WRIST.
[2019-05-13 12:00] VITALS: BP 153/111
--- NOTE | 2019-05-13 14:25 | NUR ---
I have reviewed this patient and I concur with the Shift Assessment completed by the Licensed Practical Nurse today this shift.
[2019-05-13 16:00] VITALS: BP 156/106
--- NOTE | 2019-05-13 19:45 | NUR ---
PT SITTING UP IN BED ALERT AND ORIENTED X4. GIRLFRIEND AT BEDSIDE. NO S/S OF DISTRESS AT THIS TIME. VITALS STABLE. BED LOW CALL LIGHT WITHIN REACH WILL CONTINUE TO MONITOR.
[2019-05-13 20:35] VITALS: BP 125/89
--- NOTE | 2019-05-13 22:09 | NUR ---
PT RECIEVED SHOWER AND LINEN CHANGE FROM YULIYA SMITH.
--- NOTE | 2019-05-13 23:06 | NUR ---
REWRAPPED PT'S KRYSTA WITH DAREK BANDAGE UP TO KNEE AND ELEVATED LEG. FOOT IS SWOLLEN, HOT TO TOUCH, AND 8/10 PAIN WHEN TOUCHED. WILL CONTINUE TO MONITOR.
[2019-05-13 23:52] VITALS: BP 143/96
--- NOTE | 2019-05-14 01:02 | NUR ---
PT RESTING IN BED WITH EYES CLOSED. RR EVEN AND UNLABORED. LLE ELEVATED. NO S/S OF DISTRESS AT THIS TIME. BED LOW CALL LIGHT WITHIN REACH. WILL CONTINUE TO MONITOR.
[2019-05-14 04:02] VITALS: BP 141/100
--- NOTE | 2019-05-14 04:15 | NUR ---
I have reviewed this patient and I concur with the Shift Assessment completed by the Licensed Practical Nurse today this shift.
[2019-05-14 04:54] LABS: BASOPHILS 0.2 % (0-2); EOSINOPHILS 1.3 % (0-7); HEMATOCRIT 36.1 % (42.0-54.0); HEMOGLOBIN 11.7 g/dL (13.5-17.5); IMMATURE GRANULOCYTES 2.4 % (0-5); LYMPHOCYTES 18.1 % (15-50); MCH 30.9 pg (26.0-34.0); MCHC 32.4 g/dL (31.0-37.0); MCV 95.3 fL (80.0-100.0); MEAN PLATELET VOLUME 10.5 fL (7.4-10.4); MONOCYTES 11.8 % (2-11); NEUTROPHILS 66.2 % (40-80); PLATELET COUNT 274 10x3/uL (130-400); RBC 3.79 10x6/uL (4.20-6.10)
[2019-05-14 05:09] LABS: CALC OSMOLALITY 278 mosm/kg (275-300); CALCIUM 8.9 mg/dL (8.5-10.1); CHLORIDE - SERUM 103 mmol/L (98-107); CREATININE - SERUM 0.8 mg/dL (0.6-1.3); GLUCOSE 108 mg/dL (74-106); POTASSIUM - SERUM 3.9 mmol/L (3.5-5.1); SODIUM 139 mmol/L (136-145); UREA NITROGEN 13 mg/dL (7-18); eGFR NON AFRICAN AMERICAN > 90 mL/min (90-120)
--- NOTE | 2019-05-14 05:49 | NUR ---
ASKED PT ABOUT HOME O2. PT STATES HE HAS IT BUT USES WHEN NEEDED AND THEN STATES HE HAS HIS CPAP IN BAG. HOOKED CPAP UP. O2-96%. WILL CONTINUE TO MONITOR.
[2019-05-14 08:47] VITALS: BP 166/110
[2019-05-14 13:04] VITALS: BP 144/98
--- NOTE | 2019-05-14 19:23 | NUR ---
AWAKE AND ALERT WILL OBSERVE CONTACT ISOLATIION LEFT LEG IS WRAPPED IN DAREK PT DENIES NEEDS LCTA AND IV INFUSING IRON BED LOW AND LOCKED AND SRX2 AND CALL LIGHT IS WITH PT
[2019-05-14 20:32] VITALS: BP 133/84
[2019-05-14 23:51] VITALS: BP 115/83
--- NOTE | 2019-05-15 01:17 | NUR ---
I have reviewed this patient and I concur with the Shift Assessment completed by the Licensed Practical Nurse today this shift.
[2019-05-15 04:30] VITALS: BP 142/95
[2019-05-15 06:24] LABS: BASOPHILS 0.5 % (0-2); EOSINOPHILS 1.2 % (0-7); HEMOGLOBIN 12.2 g/dL (13.5-17.5); IMMATURE GRANULOCYTES 4.7 % (0-5); LYMPHOCYTES 24.3 % (15-50); MCH 30.5 pg (26.0-34.0); MCHC 32.1 g/dL (31.0-37.0); MEAN PLATELET VOLUME 10.3 fL (7.4-10.4); MONOCYTES 11.5 % (2-11); NEUTROPHILS 57.8 % (40-80)
[2019-05-15 06:26] LABS: PLATELET COUNT 382 10x3/uL (130-400)
[2019-05-15 06:47] LABS: CALC OSMOLALITY 283 mosm/kg (275-300); CALCIUM 9.1 mg/dL (8.5-10.1); CHLORIDE - SERUM 102 mmol/L (98-107); CREATININE - SERUM 0.7 mg/dL (0.6-1.3); GLUCOSE 103 mg/dL (74-106); SODIUM 142 mmol/L (136-145); UREA NITROGEN 15 mg/dL (7-18); eGFR NON AFRICAN AMERICAN > 90 mL/min (90-120)
[2019-05-15 06:48] LABS: POTASSIUM - SERUM 3.3 mmol/L (3.5-5.1)
--- NOTE | 2019-05-15 07:15 | NUR ---
PT RESTING IN BED, SHIFT ASSESSMENT PERFORMED. DENIES ANY NEEDS AT THIS TIME, CALL LIGHT WITHIN REACH, WILL CONT TO FOLLOW POC
[2019-05-15 09:13] VITALS: BP 150/66
--- NOTE | 2019-05-15 11:10 | EC ---
PATIENT:ATIF SCALES DATE OF SERVICE: 05/09/19 SEX: M MEDICAL RECORD: [id number] DATE OF : [birth year] LOCATION:D.M2 D.213 AGE OF PATIENT: 53 ADMISSION DATE: 05/09/19 REFERRING PHYSICIAN: INTERPRETING PHYSICIAN: TIFFANIE WHITLOCK MD ECHOCARDIOGRAM REPORT ECHO CHARGES 4 ECHO COMPLETE Date: 05/11/19 CLINICAL DIAGNOSIS: CHF ECHOCARDIOGRAPHIC MEASUREMENTS (adult normal given) AC root (d.<3.7cm) 3.0 cm LV Septum d (<1.2 cm> 1.4 cm Valve Excursion 2.4 cm LV Septum (systole) 2.3 cm Left Atria (s.<4.0cm> 3.8 cm LVPW d(<1.2cm) 1.4 cm RV (d.<2.3cm) 3.4 cm LVPW (sytole) 2.1 cm LV diastole(<5.6CM) 6.3 cm MV E-F(>70mm/sec) cm LV systole 3.5 cm LVOT Diameter 2.2 cm MV exc.(>10mm) cm Est.ejection fraction (50-75%) % DOPPLER: LVIT cm/sec A 71.0 cm/sec E 116 cm/sec LA cm/sec RVSP 18.0 mmHg LVOT 138 cm/sec AOP1/2T m/s Asc. Ao 157 cm/sec RVOT 73.0 cm/sec RA cm/sec PA 107 cm/sec AV Gradient Peak 9.8 mmHg AV Mean 4.3 mmHg AV Area 3.3 cm MV Gradient Peak 6.2 mmHg MV Mean 2.8 mmHg MV Area cm COMMENTS: Aerospace Engineer Officer Armament: Gareth GUARDADOOE [facility] Aide: 1 Dr. Whitlock TAPE# PACS Pericardial Effusion N DATE OF SERVICE: ECHOCARDIOGRAM FINDINGS: 1. Left ventricular chamber size is mildly dilated. Left ventricular systolic function is preserved at 55% to 60%. 2. Left atrium is within normal limits at 3.8 cm. Right atrium and right ventricle chamber sizes are mildly dilated. 3. Valvular structures have normal structure and motion. ECHOCARDIOGRAM REPORT [id number] ATIF SCALES 4. Doppler interrogation reveals trace mitral regurgitation, no other valvular insufficiency or stenosis. Pulmonary systolic pressure is estimated at 18 mmHg. 5. No evidence of pericardial effusion or left ventricular thrombus. TRANSINT:[id number] Voice Confirmation ID: [id number] DOCUMENT ID: [id number] TIFFANIE WHITLOCK MD at 1110 CC: [id number] DICTATION DATE: 05/12/19939 TOLL RELIEF OPERATOR: 05/12/19 1105 ADM IN [facility] [address] [place] [address]
[2019-05-15 12:17] VITALS: BP 164/62
--- NOTE | 2019-05-15 12:20 | NUR ---
PT RESTING IN BED EATING LUNCH, FAMILY AT BEDSIDE. DENIES ANY NEEDS AT THIS TIME. WILL CONT TO FOLLOW POC
[2019-05-15 17:24] VITALS: BP 129/92
--- NOTE | 2019-05-15 19:26 | NUR ---
ALERT AND DENIES NEEDS ISOLATION CONTACT BED LOW AND LOCKED AND CALL LIGHT IS WITH PT
[2019-05-15 20:00] VITALS: BP 138/86
[2019-05-16] VITALS: BP 136/94
[2019-05-16 04:00] VITALS: BP 161/106
[2019-05-16 05:26] LABS: BASOPHILS 0.3 % (0-2); EOSINOPHILS 1.1 % (0-7); HEMATOCRIT 37.9 % (42.0-54.0); HEMOGLOBIN 12.2 g/dL (13.5-17.5); IMMATURE GRANULOCYTES 4.7 % (0-5); MCH 30.7 pg (26.0-34.0); MCHC 32.2 g/dL (31.0-37.0); MCV 95.5 fL (80.0-100.0); MEAN PLATELET VOLUME 10.1 fL (7.4-10.4); MONOCYTES 9.1 % (2-11); NEUTROPHILS 59.8 % (40-80); PLATELET COUNT 372 10x3/uL (130-400); RBC 3.97 10x6/uL (4.20-6.10); WBC 15.4 10x3/uL (4.8-10.8)
[2019-05-16 05:33] LABS: CALC OSMOLALITY 283 mosm/kg (275-300); CALCIUM 8.6 mg/dL (8.5-10.1); CARBON DIOXIDE 29.7 mmol/L (21.0-32.0); CHLORIDE - SERUM 104 mmol/L (98-107); CREATININE - SERUM 0.7 mg/dL (0.6-1.3); GLUCOSE 81 mg/dL (74-106); POTASSIUM - SERUM 4.1 mmol/L (3.5-5.1); SODIUM 143 mmol/L (136-145); UREA NITROGEN 13 mg/dL (7-18); eGFR NON AFRICAN AMERICAN > 90 mL/min (90-120)
--- NOTE | 2019-05-16 07:00 | NUR ---
RECEIVED REPORT. ASSUMED CARE OF PATIENT. PATIENT OOB TO SHOWER AT THIS TIME. PATIENT HAS TAKEN DRESSING OFF OF LEG AND GOTTEN IN SHOWER WITHOUT LETTING ANYONE KNOW. IV IS NOT WRAPPED AT THIS TIME. LINENS CHANGED. PATIENT IN NO DISTRESS. DENIES NEEDS AT THIS TIME. WHITE BOARD UPDATED.
--- NOTE | 2019-05-16 09:18 | NUR ---
SPOKE WITH JC AZUL FOR ORTHO TO QUESTION ABOUT ABX NEEDS OF PATIENT AND THAT ORTHO HAS NOT SEEN THE PATIENT SINCE 05/12 AND WE ARE UNSURE IF ORTHO HAS SIGNED OFF. JORGE ALBERTO STATES IT LOOKS IF HAS SIGNED OFF, THE CULTURES ARE NEGATIVE AND HE PROVIDED HIS RECOMMENDATION TO ELEVATE AND KEEP LEG WRAPPED WITH DAREK WRAP. JORGE ALBERTO PROVIDED CELL NUMBER AND STATED HE IS IN SURGERY THIS MORNING BUT WILL RETURN THE CALL SOON HE IS AVAILABLE. THIS INFORMATION PASSED ON TO CASE MANAGEMENT WHO WAS REQUESTING THE INFORMATION.
[2019-05-16 09:29] VITALS: BP 148/99
--- NOTE | 2019-05-16 09:49 | NUR ---
SPOKE WITH AND HE STATES THAT HE SIGNED OFF THE PATIENT. THE MRI STATES HE HAS NOTHING FOR HIM TO DRAIN, IT IS CELLULITIS. STATES IT WOULD BE BEST AT THIS POINT IF THE PATIENT WAS FOLLOWED BY INFECTIOUS DISEASE. THANKED . SPOKE WITH CASE MANAGEMENT FOR RECOMMENDATIONS PER FOR INFECTIOUS DISEASE.
[2019-05-16] MEDS ORDERED: CLEOCIN HCL300 MG PO (12:09)
[2019-05-16 12:13] VITALS: BP 137/95
--- NOTE | 2019-05-16 13:10 | NUR ---
RESTING IN BED WITH EYES CLOSED. NO DISTRESS. CALL LIGHT WITHIN REACH. HAVE RECIEVED DISCHARGE ORDERS. WAITING ON PAPERWORK AND FINAL ORDERS.
--- NOTE | 2019-05-16 13:48 | NUR ---
NO FLU SHOT GIVEN PATIENT STATES HE RECEIVED ONE PRIOR TO ADMIT AND ALSO GOING HOME ON ORAL CLE[place]IN.
--- NOTE | 2019-05-16 13:57 | NUR ---
20 GAUGE IV REMOVED FROM RIGHT WRIST. NO BLEEDING FROM SITE. CATHETER TIP INTACT. 2X2 GAUZE APPLIED AND SECURED WITH BANDAID. TOLERATED IV REMOVAL WELL. PATIENT BEING DISCHARGED TO HOME.
--- NOTE | 2019-05-16 14:06 | NUR ---
DISCHARGE INSTRUCTIONS PROVIDED TO PATIENT AT THIS TIME. PATIENT VERBALIZED UNDERSTANDING OF ALL INSTRUCTIONS PROVIDED. PATIENT IS CURRENTLY WAITING ON HIS RIDE TO GET HERE. CHECKED LEFT LEG TO ENSURE THAT IS WAS WRAPPED. REMOVED CURRENT DAREK WRAP THAT PATIENT APPLIED AND REWRAPPED WITH A NEW DAREK BANDAGE. NO DISTRESS. CALL LIGHT WITHIN REACH.
--- NOTE | 2019-05-16 14:53 | NUR ---
PATIENT LEFT UNIT VIA WHEELCHAIR AT THIS TIME. PATIENT DISCHARGED TO HOME WITH HIS MOTHER. PATIENT IN NO DISTRESS UPON LEAVING UNIT.
--- NOTE | 2019-05-17 06:58 | MORECARE ---
CASE MANAGEMENT DISCHARGE SUMMARY PATIENT: ATIF SCALES UNIT: [id number] ADM DATE: 05/09/19 AGE: 53 : 69 SEX: M ROOM/BED: D.2571 AUTHOR: FER MIRANDA PHYSICIAN: REFERRING PHYSICIAN: PRAVEEN CARRASQUILLO MD DATE OF SERVICE: 05/17/19 Discharge Plan Patient Name: ATIF SCALES Facility: [facility]:[place] : 1965 Planned Disposition: Home Anticipated Discharge Date: 05/16/19 Discharge Date: 05/16/2019 Expected LOS: 7 Initial Reviewer: [id number] Initial Review Date: 05/10/2019 Generated: 05/17/19 7:58 am DCP- Discharge Planning Updated by [email or web address]: Daniela Peters on 05/10/19 2:[address] Patient Name: ATIF SCALES Admission Status: Elective Accout number: [id number] Admission Date: 05-09-2019 : 1965 Admission Diagnosis: Attending: RAIMUNDO Current LOS: 1 Anticipated DC Date: Planned Disposition: Home Primary Insurance: [place] [employer]IONS [place] Discharge Planning Comments: CM MET WITH PATIENT AFTER OBTAINING VERBAL CONSENT. STATES PLANS TO DISCHARGE TO HOME. DISCUSSED NEED FOR HH, REHAB OR EQUIPMENT, PATIENT STATES NO NEEDS. CM WILL FOLLOW AND ASSIST NEEDED. Cyber Security Specialist: Daniela Peters DCPIA - Discharge Planning Initial Assessment Updated by [email or web address]: Daniela Peters on 05/10/19 3:03 pm * Is the patient Alert and Oriented? Yes * PCP GINO * [facility] * Preadmission Environment Home with Family * ADLs Independent * Equipment None * List name and contact numbers for known caregivers / representatives who currently or will assist patient after discharge: NAE, * Community resources currently utilized None * Additional services required to return to the preadmission environment? No * Can the patient safely return to the preadmission environment? Yes * Has this patient been hospitalized within the prior 30 days at any hospital? No Last DP export: 05/10/19 2:05 p Patient Name: ATIF SCALES Page [id number] at 0658 All edits/amendments must be made on the electronic document DICTATION DATE: 05/17/19657 HAND RUG CLEANER: TR 05/17/19657 RPT#: [id number] DC DATE:05/16/19 STATUS: DIS IN [facility] [address] [facility] [place] [address] END OF REPORT
== END 2019-05-16 15:01 | disposition home or self-care (01) | DRG 872 ==
LOC: D.ER 04:37 → D.M2 06:56
PROVIDERS: Family Medicine; Internal Medicine Nephrology; ADMIT Family Medicine; ATTEND Family Medicine
DX: A41.9 Sepsis, unspecified organism (principal); L03.116 Cellulitis of left lower limb; F17.213 Nicotine dependence, cigarettes, with withdrawal; E87.1 Hypo-osmolality and hyponatremia; D64.9 Anemia, unspecified; E87.6 Hypokalemia; M06.9 Rheumatoid arthritis, unspecified; I10 Essential (primary) hypertension; F15.10 Other stimulant abuse, uncomplicated; F10.10 Alcohol abuse, uncomplicated; E87.70 Fluid overload, unspecified